=== PATIENT | female | born 1960 | race Asian ===

== ENCOUNTER → 2020-04-24 | Outpatient (CLI) | payer BC ==
[~2020-04-24] VITALS: Ht 160 cm; Wt 57.0 kg
[2020-04-24 11:11] VITALS: BP 172/96; PULSE 86
[2020-04-24 12:00] VITALS: BP 159/82; PULSE 70
[2020-04-24 12:02] VITALS: BP 166/95; PULSE 115
[2020-04-24 12:03] VITALS: BP 149/88; PULSE 114
[2020-04-24 12:04] VITALS: BP 147/83; PULSE 108
[2020-04-24 12:05] VITALS: BP 141/78; PULSE 103
== END ==
LOC: COL.CARD 10:45
DX: R94.31 Abnormal electrocardiogram [ECG] [EKG] (principal); R07.2 Precordial pain; E78.5 Hyperlipidemia, unspecified
CPT/HCPCS: A9500; J2785

== ENCOUNTER → 2020-05-08 | Outpatient (CLI) | payer BC | LOC: MC.RAD 13:45 | DX: Z12.31 Encounter for screening mammogram for malignant neoplasm of breast (principal) ==

== ENCOUNTER → 2021-06-11 | Outpatient (CLI) | payer BC | LOC: MC.RAD 10:15 | DX: Z12.31 Encounter for screening mammogram for malignant neoplasm of breast (principal) ==